=== PATIENT | female | born 1970 | race African-American/Black ===

== ENCOUNTER 2025-01-11 04:29 | Emergency (ER) | payer OTHER ==
[2025-01-11 05:37] LABS: #Basophils Less than 0.03 10x3/uL (0.0-0.2); #Eosinophils 0.08 10x3/uL (0.0-0.5); #Monocytes 0.54 10x3/uL (0.0-1.1); #Neutrophils 10.86 10x3/uL (1.5-8.4); %Basophils 0.1 % (0.0-2.0); %Eosinophils 0.6 % (0.0-6.0); %Lymphocytes 15.7 % (18.0-47.0); %Monocytes 3.9 % (0.0-10.0); %Neutrophils 79.4 % (40.0-75.0); Hematocrit 38.7 % (34.9-44.5); Hemoglobin 12.8 g/dL (12.0-15.5); Mean Corpuscular Hemoglobin 26.8 pg (27.0-33.0); Mean Corpuscular Volume 81.0 fL (81.6-98.3); Platelet Count 329 10x3/uL (150-450); Red Blood Cell (RBC) Count 4.78 10x6/uL (3.90-5.03); White Blood Cell (WBC) Count 13.69 10x3/uL (3.5-10.5)
[2025-01-11 05:41] LABS: Glucose, Urine (Dipstick) 50 mg/dL (Negative); Leukocyte 25 (Negative); Protein, Urine (Dipstick) 500 mg/dl (Neg-Trace); Specific Gravity, Urine 1.020 (1.005-1.030)
[2025-01-11 05:45] LABS: CAUTI Indications for Culture Acute Hematuria
[2025-01-11 05:48] LABS: ALT (SGPT) 9 U/L (Less than 34); AST (SGOT) 23 U/L (11-34); Albumin 3.7 g/dL (3.1-4.5); Alkaline Phosphatase 101 U/L (40-110); Anion Gap 13 mmol/L (10-20); BUN (Urea Nitrogen) 10 mg/dL (9.8-20.1); Bilirubin, Total 0.2 mg/dL (0.3-1.2); Calc. Creatinine Clearance 0 mL/min (70-130); Calcium 9.1 mg/dL (7.8-10.44); Carbon Dioxide 23 mmol/L (22-29); Chloride 106 mmol/L (98-107); Globulin 3.4 g/dL (2.4-3.5); Glucose 198 mg/dL (70-105); Lipase 11 U/L (8-78); Potassium 3.6 mmol/L (3.5-5.1); Sodium 138 mmol/L (136-145)
[2025-01-11 05:48] LABS: Bacteria/HPF 1+ HPF (None Seen); RBC/HPF Greater than 50 HPF (0-3)
[2025-01-11 05:49] LABS: Urine Culture Reflex No No
[2025-01-11] MEDS ORDERED: cefTRIAXone (ROCEPHIN) 2 GM VIAL ONE (06:04)
[2025-01-11] MEDS ORDERED: Iopamidol 300 61% 100 ML VIAL FS ONE (14:19)
== END 2025-01-11 06:55 | disposition home or self-care (01) ==
LOC: CSHERS 04:29
DX: N39.0 Urinary tract infection, site not specified (principal); N93.9 Abnormal uterine and vaginal bleeding, unspecified; D25.9 Leiomyoma of uterus, unspecified; E11.9 Type 2 diabetes mellitus without complications; I10 Essential (primary) hypertension; E78.5 Hyperlipidemia, unspecified; F17.220 Nicotine dependence, chewing tobacco, uncomplicated; Z79.84 Long term (current) use of oral hypoglycemic drugs; Z79.899 Other long term (current) drug therapy
CPT/HCPCS: 74177; 80053; 81001; 83690; 85025; 96374; 96375; 96376; J0696; Q9967